=== PATIENT | female | born 1955 | race Caucasian/White ===

== ENCOUNTER 2020-09-13 08:10 | Outpatient (REF) | payer OTHER, SELFPAY ==
[2020-09-13 11:24] LABS: MANUAL DIFF FLAG NO
[2020-09-13 11:38] LABS: Basophils Percent Auto 0.3 % (0-2); Eosinophils Absolute Auto 0.1 X10*3/uL (0.0-0.4); Eosinophils Percent Auto 1.6 % (0-4); Hemoglobin 13.1 g/dl (12.0-16.0); Imm Gran Abs Auto 0.02 X10*3/uL (0.00-0.03); Imm Gran Pct Auto 0.3 % (0.0-0.4); Lymphocytes Absolute Auto 2.3 X10*3/uL (1.2-4.9); Lymphocytes Percent Auto 30.6 % (20-40); Mean Corpuscular HGB Conc 31.2 g/dl (31.0-35.0); Mean Corpuscular Hemoglobin 28.4 pg (27.0-33.0); Mean Corpuscular Volume 91.1 fL (80-98); Mean Platelet Volume 11.2 fL (9.4-12.3); Monocytes Absolute Auto 0.5 X10*3/uL (0.1-1.2); Monocytes Percent Auto 6.9 % (2-11); Neutrophils Absolute Auto 4.6 X10*3/uL (2.0-8.3); Neutrophils Percent Auto 60.3 % (45-73); Platelet Count 231 X10*3/uL (160-400); Red Blood Count 4.61 X10*6/uL (4.20-5.50); White Blood Count 7.7 X10*3/uL (4.8-10.8)
[2020-09-13 11:59] LABS: Alanine Aminotransferase 15 U/L (0-31); Albumin Level 3.8 g/dL (3.5-5.0); Alkaline Phosphatase 118 U/L (39-117); Anion Gap 15 (12-20); Aspartate Amino Transferase 16 U/L (5-31); Bilirubin Total 0.8 mg/dL (0.0-1.0); Blood Urea Nitrogen 19 mg/dL (9-16); Calcium 8.6 mg/dL (8.4-10.2); Carbon Dioxide 29 mmol/L (22-29); Chloride 100 mmol/L (96-108); Cholesterol 170 mg/dL; Estimated Glomerular Filt Rate > 60; Glucose Fasting 116 mg/dL (60-99); HDL Cholesterol 46 mg/dL; LDL Cholesterol Calculated 104 mg/dl; Potassium 3.9 mmol/l (3.3-5.1); Sodium 140 mmol/L (135-145); Total Protein 6.7 g/dL (6.5-8.0); Triglycerides 103 mg/dL
[2020-09-13 12:08] LABS: Thyroid Stimulating Hormone 4.41 uIU/mL (0.32-4.0)
[2020-09-13 12:21] LABS: Creatinine Urine 88.77 mg/dL; Microalbum/Creatinine Ratio Ur 5.6 ug/mg cr
== END 2020-09-13 08:11 | disposition home or self-care (01) ==
LOC: HO.HMGCLDS 08:10
PROVIDERS: PCP Internal Medicine Endocrinology, Diabetes & Metabolism; Visit Provider Internal Medicine Endocrinology, Diabetes & Metabolism
DX: E11.9 Type 2 diabetes mellitus without complications (principal); E78.00 Pure hypercholesterolemia, unspecified
CPT/HCPCS: 36415; 80053; 80061; 82043; 84443; 85025

== ENCOUNTER 2020-10-04 15:15 | Outpatient (REF) | payer OTHER, SELFPAY ==
[2020-10-04 18:20] LABS: COVID-19 Test Negative (Negative)
== END 2020-10-04 15:16 | disposition home or self-care (01) ==
LOC: HO.EMPCOV 15:15
PROVIDERS: PCP Internal Medicine Endocrinology, Diabetes & Metabolism; Visit Provider Internal Medicine
DX: Z20.828 Contact with and (suspected) exposure to other viral communicable diseases (principal)
CPT/HCPCS: 87635; C9803

== ENCOUNTER 2021-06-28 15:19 | Outpatient (REF) | payer OTHER, SELFPAY ==
--- NOTE | ~2021-06-28 | US_ITS ---
EXAMINATION: ULTRASOUND EXTREMITY NONVASCULAR LIMITED CLINICAL INFORMATION: Pain left posterior wrist COMPARISON: None TECHNIQUE: Grayscale and color imaging of the soft tissues of the left dorsal wrist using a linear transducer. Comparison imaging of the right dorsal wrist was also performed. FINDINGS: No solid or cystic mass or fluid collection is seen by ultrasound. US/US extremity nonvascular tejeda IMPRESSION: No abnormality evident by ultrasound.
== END 2021-06-28 15:20 | disposition home or self-care (01) ==
LOC: HO.US 15:19
PROVIDERS: PCP Internal Medicine Endocrinology, Diabetes & Metabolism; Visit Provider Orthopaedic Surgery
DX: M25.532 Pain in left wrist (principal)
CPT/HCPCS: 76882

== ENCOUNTER 2021-08-03 17:08 | Outpatient (REF) | payer OTHER, SELFPAY ==
--- NOTE | ~2021-08-03 | MR_ITS ---
EXAMINATION: MRI WRIST WITHOUT AND WITH CONTRAST, LEFT CLINICAL INFORMATION: Wrist pain. Dorsal ganglion cyst. COMPARISON: None TECHNIQUE: MRI of the wrist without and with contrast is performed in a 1.5 Brandy high-field scanner. 10 cc Gadavist. Patient was recalled for additional imaging, obtained on 08/11/2021 FINDINGS: BONE/JOINTS: No evidence of fracture. Carpal row alignment is maintained. No evidence of significant arthropathy. Small wrist joint fluid. No definite ganglion cyst is identified. MUSCLE/TENDONS: There is prominent intrasubstance T2 bright signal in the extensor digitorum tendon, likely of the second digit. This involves a segment approximately 0.9 cm in length, as the tendon courses along the carpal bones. Findings suggestive of tendinosis and probable component of intrasubstance partial tearing. There is associated peritendinitis and tenosynovitis. Mild peritendinitis/tenosynovitis of the extensor digitorum tendons otherwise. Remainder of the tendons appear unremarkable. LIGAMENTS: Scapholunate, lunotriquetral, TFCC are intact. MEDIAN NERVE: Within normal limits. MR/MR wrist LT wo/w con IMPRESSION: 1. Prominent intrasubstance T2 bright signal in the extensor digitorum tendon, likely of the second digit, as it courses along the carpal bones involving a segment approximately 0.9 cm in length. Findings are suggestive of tendinosis and probable component of intrasubstance partial tearing. Associated tenosynovitis and peritendinitis. 2. Mild peritendinitis/tenosynovitis of the remainder of the extensor digitorum tendons. 3. No focal fluid collections or ganglion cyst is identified.
[2021-08-03 17:48] LABS: Blood Urea Nitrogen 16 mg/dL (9-16); Estimated Glomerular Filt Rate > 60
== END 2021-08-03 17:09 | disposition home or self-care (01) ==
LOC: HO.MRI 17:08
PROVIDERS: Visit Provider Orthopaedic Surgery
DX: M25.532 Pain in left wrist (principal)
CPT/HCPCS: 36415; 73223; 82565; 84520; A9585

== ENCOUNTER 2021-08-11 09:46 | Outpatient (REF) | payer OTHER, SELFPAY | END 2021-08-11 09:47 | disposition home or self-care (01) | LOC: HO.MRI 09:46 | PROVIDERS: Visit Provider Orthopaedic Surgery | DX: Z13.89 Encounter for screening for other disorder (principal) ==

== ENCOUNTER 2021-08-12 15:20 | Outpatient (REF) | payer OTHER, SELFPAY ==
--- NOTE | ~2021-08-12 | MM_ITS ---
EXAMINATION: MM SCREENING DIGITAL BREAST TOMOSYNTHESIS, BILATERAL CLINICAL INFORMATION: Screening. Asymptomatic. The lifetime risk of breast cancer based on the Tyrer-Cuzick Model is 11%. COMPARISON: Mammography: 12/10/2018, 12/30/2016, 09/25/2015 TECHNIQUE: Digital breast tomosynthesis is performed in both the craniocaudal and mediolateral oblique views along with computer-aided detection (CAD). Synthesized 2D images are generated from the tomosynthesis. FINDINGS: There are scattered areas of fibroglandular density (ACR BI-RADS breast composition Category b). There are no significant masses, abnormal calcifications, or other abnormalities. The axilla and skin contours are unremarkable. No significant changes. MM/MM tomosynthesis screening BI IMPRESSION: No mammographic evidence of malignancy. ASSESSMENT: BI-RADS 1: Negative RECOMMENDATION: Routine annual mammography screening. This patient's information was entered into a reminder system with a target due date for their next mammogram.
== END 2021-08-12 15:21 | disposition home or self-care (01) ==
LOC: HO.MAMMO 15:20
PROVIDERS: Visit Provider Internal Medicine Endocrinology, Diabetes & Metabolism
DX: Z12.31 Encounter for screening mammogram for malignant neoplasm of breast (principal)
CPT/HCPCS: 77063; 77067

== ENCOUNTER 2022-08-14 11:04 | Outpatient (REF) | payer MEDICARE, SELFPAY ==
--- NOTE | ~2022-08-14 | MM_ITS ---
EXAMINATION: MM SCREENING DIGITAL BREAST TOMOSYNTHESIS, BILATERAL CLINICAL INFORMATION: Screening. Asymptomatic. The lifetime risk of breast cancer based on the Tyrer-Cuzick Model is 10%. COMPARISON: Mammography: 08/12/2021, 12/10/2018, 12/30/2016 TECHNIQUE: Digital breast tomosynthesis is performed in both the craniocaudal and mediolateral oblique views along with computer-aided detection (CAD). Synthesized 2D images are generated from the tomosynthesis. FINDINGS: There are scattered areas of fibroglandular density (ACR BI-RADS breast composition Category b). There are no significant masses, abnormal calcifications, or other abnormalities. Parenchymal pattern is similar to prior studies. There is no developing density or architectural abnormality. The axilla and skin contours are unremarkable. No significant changes. MM/MM tomosynthesis screening BI IMPRESSION: No mammographic evidence of malignancy. ASSESSMENT: BI-RADS 1: Negative RECOMMENDATION: Routine annual mammography screening. This patient's information was entered into a reminder system with a target due date for their next mammogram.
== END 2022-08-14 11:05 | disposition home or self-care (01) ==
LOC: HO.MAMMO 11:04
PROVIDERS: PCP Internal Medicine Endocrinology, Diabetes & Metabolism; Visit Provider Internal Medicine Endocrinology, Diabetes & Metabolism
DX: Z12.31 Encounter for screening mammogram for malignant neoplasm of breast (principal)
CPT/HCPCS: 77063; 77067

== ENCOUNTER 2023-08-15 13:09 | Outpatient (REF) | payer MEDICARE, SELFPAY | END 2023-08-15 13:10 | disposition home or self-care (01) | LOC: HO.MAMMO 13:09 | PROVIDERS: PCP Internal Medicine Endocrinology, Diabetes & Metabolism; Visit Provider Internal Medicine Endocrinology, Diabetes & Metabolism | DX: Z12.31 Encounter for screening mammogram for malignant neoplasm of breast (principal) | CPT/HCPCS: 77063; 77067 ==

== ENCOUNTER → 2023-08-15 13:15 | Outpatient (BNV) | payer MEDICARE, SELFPAY | PROVIDERS: PCP Internal Medicine Endocrinology, Diabetes & Metabolism; Visit Provider Radiology Diagnostic Radiology | DX: Z12.31 Encounter for screening mammogram for malignant neoplasm of breast (principal) | CPT/HCPCS: 77063; 77067 ==

== ENCOUNTER 2024-08-21 12:52 | Outpatient (REF) | payer MEDICARE, SELFPAY ==
--- NOTE | ~2024-08-21 | MM_ITS ---
EXAMINATION: MM SCREENING DIGITAL BREAST TOMOSYNTHESIS, BILATERAL CLINICAL INFORMATION: Screening. Asymptomatic. COMPARISON: Mammography: Comparison is made with available priors TECHNIQUE: Digital breast mammography with tomosynthesis is performed in both the craniocaudal and mediolateral oblique views along with computer-aided detection (CAD). FINDINGS: There are scattered areas of fibroglandular density (ACR BI-RADS breast composition Category b). There are no significant masses, abnormal calcifications, or other abnormalities. MM/MM tomosynthesis screening BI IMPRESSION: No mammographic evidence of malignancy. ASSESSMENT: BI-RADS BI-RADS 1 - Negative RECOMMENDATION: Routine annual mammography screening. 1 year F/U This examination should not preclude the clinical evaluation of a suspicious palpable abnormality. This patient's information was entered into a reminder system with a target due date for their next mammogram. Electronically signed by: Carlota Lerma DO 08/29/2024 04:08 PM SHAKIR
== END 2024-08-21 12:53 | disposition home or self-care (01) ==
LOC: HO.MAMMO 12:52
PROVIDERS: PCP Physician Assistant; Visit Provider Physician Assistant
DX: Z12.31 Encounter for screening mammogram for malignant neoplasm of breast (principal)
CPT/HCPCS: 77063; 77067

== ENCOUNTER → 2024-08-21 13:00 | Outpatient (BNV) | payer MEDICARE, SELFPAY | PROVIDERS: PCP Physician Assistant; Visit Provider Internal Medicine | DX: Z12.31 Encounter for screening mammogram for malignant neoplasm of breast (principal) | CPT/HCPCS: 77063; 77067 ==

== ENCOUNTER 2025-08-24 10:31 | Outpatient (REF) | payer MEDICARE, SELFPAY ==
--- OUTSIDE RECORDS SUMMARY | 2025-08-24 12:20 | XMS_ITS | Continuity of Care Document ---
Author Organization [facility] Address [address] [place] [address] Phone [phone] Care Team Providers Care Office Administrative Assistant Name Role Phone Magda Olson CNP Care Team Informatio n Website/Blog Editor [phone] Problems Active Problems Provider Date Diabetes mellitus Dorian Marshall M.D. Onset: 0 05/18/2022 Hypercholesterolemia Dorian Marshall M.D. Onset : 05/18/2022 Sleep apnea Dorian Marshall M.D. Onset: 01/2022 Essential hypertension Dorian Marshall M.D. Ons et: 05/18/2022 Social History Type Date Description Comments Sex Female Sex Unknown Lives With Spouse ETOH Use Denies alcohol use Tobacco Use Start: Unknown Patient has never smoked Smoking Status Reviewed: 05/05/25 Patient has never sm oked Allergies and adverse reactions Active Allergies Criticality Reaction Severity Comments Date Percocet Unable to assess criticality 05/18/2022 Medications Active Medications SIG Qnty Indications Order ing Provider Date Vitamin D3 Fast [id number] (1999 Ut) Tablets Dispers Take 1 tablets by mouth a day 90tabs Magda Olson CNP 07/17/2025 Accu-Chek GuideStrips Use as directed for testing blood sugars three times daily 300units E10.9 Mali Frazier M.D. 07/11/2024 Freestyle Lite TestStrip Use A Strip To Test Sugar 1-3 Times Daily. DX E11.9 300units Mali Frazier M.D. 04/08/2024 Lorazepam0.5mg Tablets 1 tab by mouth once a day as needed 30tabs Magda Olson, [facility] 08/07/2022 [id number]/ML Solution Inject 120 units daily via insulin pump DX. E10.9 110ml E10.9 Magda Olson, [facility] 07/28/2022 Atorvastatin Tsgquol55bn Tablets Take 1 Tablet By Mouth Every Day 90ta Magda Olson, [facility] 05/18/2022 Giqykysqfjefexxrbki17 .5mg Capsules Take 1 Capsule By Mouth Every Day [facility] Magda Olson, [facility] 05/18/2022 Hboxezaqbw92wi Tablets Take 1 Tablet By Mouth Every Day 90ta Magda Olson, [facility] 03/23/2022 History Medications Vitamin [id number] Capsules 1 by mouth every day 90[facility] Magda Londono , [facility] 07/07/2025 - 07/17/2025 Nitrofurantoin [id number] Capsules take one capsule by mouth twice daily for 7 days [facility] 06/19/20 25 - 08/07/2025 Vital Signs Date Vital Result Comment 08/07/2025 1:26pm BP Systolic 128 mmHg BP Diastolic 62 mmHg Heart Rate 73 /min Height 65 inches 5'5 Weight 220.25 lb BMI (Body Mass Index) 36.6 kg/m2 Results Test Acquired Date Facility Test Result H/L Range Note Hemoglobin A1c 5 Inhouse Hemoglobin A1c 7.2% Glucose Fingerstick 5 Inhouse Glucose Fingerstick 130 Vitamin D, 25-Hydroxy 5 [facility] Vitamin D, 25-Hydroxy 20.5 ng/mL Low 30.0-100. 0 1 TSH Rfx on Abnormal to Free T4 5 [facility] TSH Rfx on Abnormal to Free T4 4.190 uIU/mL 0.450-4.5 00 Urinalysis Complete W Reflex To Culture 5 [facility] Specific [place] 1.022 1.005-1.0 30 pH 5.5 5.0-7.5 Urine-Color Yellow Yellow Appearance Clear Clear WBC Esterase Trace Abnormal Negative Protein Negative Negative/ Trace Glucose Negative Negative Ketones Negative Negative Occult Blood Negative Negative Bilirubin Negative Negative Urobilinogen,S dorys-Qn 0.2 mg/dL 0.2-1.0 Nitrite, Urine Negative Negative Microscopic Examination See below: 2 Microscopic Examination TNP Urinalysis Reflex See Comment: 3 WBC 0-5 /hpf 0 - 5 RBC None seen /hpf 0 - 2 Epithelial Cells (non renal) 0-10 /hpf 0 - 10 Epithelial Cells (renal) TNP Casts None seen /lpf None seen Cast Type TNP Crystals TNP Crystal Type TNP Mucus Threads TNP Bacteria None seen None seen/Few Yeast TNP Trichomonas TNP Comment TNP Urine Culture, Routine Final report 4 Result 1 Lactobacillus sp <SEE NOTE> 5 Thyroid Peroxidase (Tpo) Ab 5 [facility] Thyroid Peroxidase (Tpo) Ab 287 IU/mL High 0-34 Urine Culture, Routine 5 [facility] Urine Culture, Routine Final report 6, 7 Result 1 Lactobacillus sp <SEE NOTE> 8 TSH reflex to T4 5 [facility] TSH Reflex To T4 10.100 uIU/mL High 0.450-4.5 00 Thyroxine (T4) 6.2 g/dL 4.5-12. 0 Microscopic Examination 5 [facility] Epithelial Cells (non renal) See Comment: 9, 10 Request Problem 5 [facility] Request Problem TNP 11 Urinalysis, Complete 5 [facility] Specific [place] 1.015 1.002-1.0 30 pH 5.5 5.0-8.0 Appearance YELLOW 12 WBC Esterase 2+ Abnormal Negative Protein Negative Negative Glucose TRACE Abnormal Negative Ketones Negative Negative Occult Blood Negative Negative Bilirubin Negative Negative Urobilinogen,S dorys-Qn NORMAL mg/dL Normal Nitrite, Urine Negative Negative Microscopic Examination See Comment: 13 Urinalysis Complete W Reflex To Culture 5 [facility] Specific [place] TNP 14 pH TNP 15 Urine-Color TNP Appearance TNP WBC Esterase TNP Protein TNP 16 Glucose TNP 17 Ketones TNP 18 Occult Blood TNP Bilirubin TNP Urobilinogen,S dorys-Qn TNP Nitrite, Urine TNP Microscopic Examination TNP Microscopic Examination TNP Urinalysis Reflex TNP Albumin/Creatin ine Ratio, Random Urine 5 [facility] Creatinine, Urine 88.3 mg/dL Not Estab. Albumin, Urine 8.2 ug/mL Not Estab. Alb/Creat Ratio 9 mg/gcreat 0-29 19 CBC With Differential/Pl atelet 5 [facility] WBC 6.2 x10E3/uL 3.4-10.8 RBC 4.43 x10E6/uL 3.77-5.28 Hemoglobin 12.6 g/dL 11.1-15.9 Hematocrit 41.4 % 34.0-46.6 MCV 94 fL 79-97 MCH 28.4 pg 26.6-33.0 MCHC 30.4 g/dL Low 31.5-35.7 RDW 13.2 % 11.7-15.4 Platelets 195 x10E3/uL 150-450 Neutrophils 64 % Not Estab. Lymphs 28 % Not Estab. Monocytes 6 % Not Estab. Eos 2 % Not Estab. Basos 0 % Not Estab. Immature Cells TNP Neutrophils (Absolute) 4.0 x10E3/uL 1.4-7.0 Lymphs (Absolute) 1.7 x10E3/uL 0.7-3.1 Monocytes(Abso lute) 0.4 x10E3/uL 0.1-0.9 Eos (Absolute) 0.1 x10E3/uL 0.0- 0.4 Baso (Absolute) 0.0 x10E3/uL 0.0-0.2 Immature Granulocytes 0 % Not Estab. Immature Grans (Abs) 0.0 x10E3/uL 0.0-0.1 NRBC TNP Hematology Comments: TNP Urinalysis, Complete 5 [facility] Specific [place] 1.016 1.005-1.0 30 pH 5.5 5.0-7.5 Urine-Color Yellow Yellow Appearance Clear Clear WBC Esterase 2+ Abnormal Negative Protein Negative Negative/ Trace Glucose Negative Negative Ketones Negative Negative Occult Blood Negative Negative Bilirubin Negative Negative Urobilinogen,S dorys-Qn 0.2 mg/dL 0.2-1.0 Nitrite, Urine Negative Negative Microscopic Examination See below: 20 Microscopic Examination TNP WBC >30 /hpf Abnormal 0 - 5 RBC None seen /hpf 0 - 2 Epithelial Cells (non renal) 0-10 /hpf 0 - 10 Epithelial Cells (renal) TNP Casts None seen /lpf None seen Cast Type TNP Crystals TNP Crystal Type TNP Mucus Threads TNP Bacteria Few None seen/Few Yeast TNP Trichomonas TNP Comment TNP Lipid Panel 5 [facility] Cholesterol, Total 159 mg/dL 100-199 Triglycerides 121 mg/dL 0-149 HDL Cholesterol 42 mg/dL >39 VLDL Cholesterol Yimi 22 mg/dL 5-40 LDL Chol Calc ([facility]) 95 mg/dL 0-99 LDL Calc Comment: TNP Comp. Metabolic Panel (14) 5 [facility] Glucose 207 mg/dL High 70-99 BUN 14 mg/dL 8-27 Creatinine 0.79 mg/dL 0.57-1.00 eGFR 80 mL/min/1.73 >59 BUN/Creatinine Ratio 18 12-28 Sodium 139 mmol/L 134-144 Potassium 4.0 mmol/L 3.5-5.2 Chloride 100 mmol/L 96-106 Carbon Dioxide, Total 25 mmol/L 20-29 Calcium 8.8 mg/dL 8.7-10.3 Protein, Total 6.6 g/dL 6.0-8.5 Albumin 3.8 g/dL Low 3.9-4.9 Globulin, Total 2.8 g/dL 1.5-4.5 Bilirubin, Total 0.6 mg/dL 0.0-1.2 Alkaline Phosphatase 130 IU/L High 44-121 21 Ast (Sgot) 15 IU/L 0-40 Alt (SGPT) 17 IU/L 0-32 Glucose Fingerstick 5 Inhouse Glucose Fingerstick 207 Hemoglobin A1c 5 Inhouse Hemoglobin A1c 7.1 Glucose Fingerstick 5 Inhouse Glucose Fingerstick 152 Hemoglobin A1c 5 Inhouse Hemoglobin A1c 7.0% Glucose Fingerstick 4 Inhouse Glucose Fingerstick 216 Hemoglobin A1c 4 Inhouse Hemoglobin A1c 6.9 Glucose Fingerstick 4 Inhouse Glucose Fingerstick 219 Hemoglobin A1c 4 Inhouse Hemoglobin A1c 8.4% Comp. Metabolic Panel (14) 4 [facility] Sodium 142 mmol/L 134-144 Potassium 4.4 mmol/L 3.5-5.2 Chloride 102 mmol/L 96-106 Glucose 177 mg/dL High 70-99 BUN 16 mg/dL 8-27 Creatinine 0.80 mg/dL 0.57-1.00 eGFR 80 mL/min/1.73 >59 BUN/Creatinine Ratio 20 12-28 Carbon Dioxide, Total 28 mmol/L 20-29 Calcium 9.0 mg/dL 8.7-10.3 Protein, Total 6.8 g/dL 6.0-8.5 Albumin 4.1 g/dL 3.9-4.9 Globulin, Total 2.7 g/dL 1.5-4.5 A/G Ratio 1.5 1.2-2.2 Bilirubin, Total 0.3 mg/dL 0.0-1.2 Alkaline Phosphatase 138 IU/L High 44-121 Ast (Sgot) 16 IU/L 0-40 Alt (SGPT) 17 IU/L 0-32 Lipid Panel 4 [facility] Cholesterol, Total 164 mg/dL 100-199 Triglycerides 184 mg/dL High 0-149 HDL Cholesterol 47 mg/dL >39 VLDL Cholesterol Yimi 31 mg/dL 5-40 LDL Chol Calc ([facility]) 86 mg/dL 0-99 Comment: TNP CBC With Differential/Pl atelet 4 [facility] WBC 8.5 x10E3/uL 3.4-10.8 RBC 4.67 x10E6/uL 3.77-5.28 Hemoglobin 13.6 g/dL 11.1-15.9 Hematocrit 42.4 % 34.0-46.6 MCV 91 fL 79-97 MCH 29.1 pg 26.6-33.0 MCHC 32.1 g/dL 31.5-35.7 RDW 12.7 % 11.7-15.4 Platelets 267 x10E3/uL 150-450 Neutrophils 69 % Not Estab. Lymphs 25 % Not Estab. Monocytes 5 % Not Estab. Eos 1 % Not Estab. Basos 0 % Not Estab. Immature Cells TNP Neutrophils (Absolute) 5.9 x10E3/uL 1.4-7.0 Lymphs (Absolute) 2.1 x10E3/uL 0.7-3.1 Monocytes(Abso lute) 0.4 x10E3/uL 0.1-0.9 Eos (Absolute) 0.1 x10E3/uL 0.0- 0.4 Baso (Absolute) 0.0 x10E3/uL 0.0-0.2 Immature Granulocytes 0 % Not Estab. Immature Grans (Abs) 0.0 x10E3/uL 0.0-0.1 NRBC TNP Hematology Comments: TNP Albumin/Creatin ine Ratio, Random Urine 4 [facility] Creatinine, Urine 165.5 mg/dL Not Estab. Albumin, Urine 4.6 ug/mL Not Estab. Alb/Creat Ratio 3 mg/gcreat 0-29 22 Hemoglobin A1c 4 Inhouse Hemoglobin A1c 7.6% Glucose Fingerstick 4 Inhouse Glucose Fingerstick 207 Hemoglobin A1c 3 Inhouse Hemoglobin A1c 7.5% Glucose Fingerstick 3 Inhouse Glucose Fingerstick 174 Hemoglobin A1c 3 Inhouse Hemoglobin A1c 7.5% Glucose Fingerstick 3 Inhouse Glucose Fingerstick 148 Glucose Fingerstick 3 Inhouse Glucose Fingerstick 282 Hemoglobin A1c 3 [facility] Hemoglobin A1c 7.7 % High (4.0-5.6) 23 Lipid Panel 3 [facility] Cholesterol, Total 166 mg/dL (<200) Triglyceride 104 mg/dL (<150) 2 4 HDL Chol 51 mg/dL (>39) LDL Cholesterol, Calculated 94 mg/dL (0-130) Non HDL Cholesterol (Calc) 115 mg/dL (<160) Comprehensive Metabolic Panl 3 [facility] Glucose 142 mg/dL High (70-99) 25 BUN 13 mg/dL (8-23) Creatinine 0.8 mg/dL (0.5-1.0) Sodium 140 mmol/L (133-145) Potassium 4.1 mmol/L (3.6-5.2) Chloride 100 mmol/L (98-107) Bicarbonate 30 mmol/L High (22-29) Anion Gap 10 (4-17) Albumin 3.9 GM/DL (3.4-4.8) Calcium 9.3 mg/dL (8.6-10.5 ) Bilirubin,Tota l 0.4 mg/dL (0-1.2) Total Protein 6.7 GM/DL (6.2-8.2 ) Ag Ratio 1.4 Ast 21 U/L (0-32) Alk Phos 135 U/L High (35-104) Alt 21 U/L (0-33) Estimated GFR Creatinine 80 ML/MIN/1.73M2 26 Urinary Microalbumin 3 [facility] Micro-Albumin <12.0 mg/L (<20) 27 Malb/Creat Ratio Unable to calcul <SEE NOTE> MG/GM (0-20) 28 Urine Creat For Micro Albumin 71.3 mg/dL Complete Abc With Diff 3 [facility] WBC 6.5 K/MM3 (4.0-11.0 ) RBC 4.57 M/MM3 (4.20-5.4 0) HGB 13.0 GM/DL (11.7-15. 5) HCT 41.9 % (35.7-45. 8) MCV 91.7 FL (80.0-100 .0) MCH 28.4 pg (27.0-34. 0) MCHC 31.0 g/dL Low (33.0-37. 0) PLT 223 K/MM3 (150-460) RDW-SD 43.5 FL (<47.0) MPV 11.1 FL (9.4-12.4 ) Automated NRBC 0.0 #/100WBC'S Abs. NRBC 0.0 K/MM3 Neut # 3.7 K/MM3 (1.3-7.0) Lymph # 2.2 K/MM3 (0.8-3.1) Miner# 0.5 K/MM3 (0.4-0.9) Eo # 0.1 K/MM3 (0.0-0.4) Baso # 0.0 K/MM3 (0.0-0.1) Abs. Imm Gran 0.0 K/MM3 Neut 57.1 % (44-76) Lymph 33.4 % (15-43) Monocyte 7.5 % (4.5-10.5 ) Eo 1.4 % (0-6) Baso 0.3 % (0-2) Imm Gran 0.3 % Hemoglobin A1c 2 [facility] Hemoglobin A1c <pending> Hemoglobin A1c 2 Inhouse Hemoglobin A1c 7.6% Glucose Fingerstick 2 Inhouse Glucose Fingerstick 182 Hemoglobin A1c 2 Inhouse Hemoglobin A1c 7.6% Glucose Fingerstick 2 Inhouse Glucose Fingerstick 146 1 Vitamin D deficiency has been defined by the [place] of Medicine and an Endocrine Society practice guideline as a level of serum 25-OH vitamin D less than 20 ng/mL (1,2). The Endocrine Society went on to further define vitamin D insufficiency as a level between 21 and 29 ng/mL (2). 1. IOM ([place] of Medicine). 2010. Dietary reference intakes for calcium and D. [place]: The National Academies Press. 2. Becca MF, Rigoberto HEWITT, Mara BOOGIE, et al. Evaluation, treatment, and prevention of vitamin D deficiency: an Endocrine Society clinical practice guideline. JCEM. 2010; 96(7):1911-30. 2 Microscopic was manuel cated and was performed. 3 This specimen has re flexed to a Urine Culture. 4 Preliminary report 5 Lactobacillus specie s Greater than 100,000 colony forming units per mL Susceptibility not normally performed on this organism. 6 SRC:UC 7 Source of Specimen: UC 8 Lactobacillus specie s Source of Specimen: UC Greater than 100,000 colony forming units per mL Susceptibility not normally performed on this organism. 9 A courtesy copy of t his report has been sent to the patient, 10 MICROSCOPIC PERFORME D 11 Please refer to the following specimen for additional lab results. TEST: [id number] UA/M w/rflx Culture, Routine [id number] 12 TURBID 13 MICROSCOPIC PERFORME D URINE WBCs 30 /HPF 0-5 H URINE RBCs 6 /HPF 0-3 H BACTERIA HEAVY HPF NEGATIVE A MUCUS SLIGHT /LPF N SQUAMOUS EPITH 2 /HPF 0-8 N CORRECTED ON 06/19 AT 1219: PREVIOUSLY REPORTED 4 14 Please refer to the following specimen for additional lab results. [id number] 15 Test not performed 16 Test not performed 17 Test not performed 18 Test not performed 19 Normal: 0 - 29 Moderately increased: 30 - 300 Severely increased: >300 20 Microscopic was manuel cated and was performed. 21 Effective 2024 Alkaline Phosphatase reference interval will be changing to: Age Male Female 0 - 5 days 47 - 127 47 - 127 6 - 10 days 29 - 242 29 - 242 11 - 20 days 109 - 357 109 - 357 21 - 30 days 94 - 494 94 - 494 1 - 2 months 149 - 539 149 - 539 3 - 6 months 131 - 452 131 - 452 7 - 11 months 117 - 401 117 - 401 12 months - 6 years 158 - 369 158 - 369 7 - 12 years 150 - 409 150 - 409 13 years 156 - 435 78 - 227 14 years 114 - 375 64 - 161 15 years 88 - 279 56 - 134 16 years 74 - 207 51 - 121 17 years 63 - 161 47 - 113 18 - 20 years 51 - 125 42 - 106 21 - 50 years 47 - 123 41 - 116 51 - 80 years 49 - 135 51 - 125 >80 years 48 - 129 48 - 129 22 Normal: 0 - 29 Moderately increased: 30 - 300 Severely increased: >300 23 MONITORING: In known diabetic patients, hemoglobin A1c targets should be discussed with health care provider. DIAGNOSTIC USE: The [place] Diabetes Association (ADA) and the World Health Organization (WHO) recommend the use of HbA1c to diagnose diabetes using a threshold of 6.5%. Patients who have an HbA1c between 5.7% and 6.4% are considered at increased risk for developing diabetes in the future. CAUTION: Falsely low HbA1c results may be observed in patients with hemolytic anemia, homozygous forms of abnormal hemoglobin (e.g. SS, CC, SC), , recent blood loss or hemoglobin F greater than 7%. Fructosamine may be used as an alternate test in these cases. REFERENCE: ADA: Standards of Medical Care in Diabetes 2020, The Journal of Clinical and Applied Research and Education Volume 43, Supplement 1 24 Fasting 25 Fasting 26 Creatinine based est imated glomerular filtration (eGFR) in adults is calculated using the National Kidney Foundation recommended 2020 CKD-EPI equation. Estimates GFR from serum creatinine, age and sex. 27 The urine microalbum in test is designed to monitor renal function. When screening for Bence Floyd proteinuria, urine electrophoresis is recommended. 28 Unable to calculate Procedures Date Code Description Status 08/07/2025 78036 Glucose Monitoring Interpeta tion And Report Completed 05/05/2025 05152 Glucose Monitoring Interpeta tion And Report Completed 02/04/2025 90441 Glucose Monitoring Interpeta tion And Report Completed 05/29/2023 04181 Glucose Monitoring Interpeta tion And Report Completed 02/26/2023 88500 Glucose Monitoring Interpeta tion And Report Completed 08/28/2022 45499 Glucose Monitoring Interpeta tion And Report Completed Medical Devices Description No Information Available Encounters Type Date Location Provider Dx Diagnosis Office Visit 07/20/2025 9:38a Main Office Magda Olson CNP E78.00 Pure hypercholesterolemia, unspecified I10 Essential (primary) hypertension Assessments Date Code Description Provider 08/07/2025 E10.9 Type 1 diabetes mellitus without complications Magda Olson CNP 08/07/2025 E06.3 Autoimmune thyroiditis Nazanin Olson CNP 08/07/2025 I10 Essential hypertension Nazanin Olson CNP 08/07/2025 E78.00 Hypercholesterolemia Magda Olson CNP 08/07/2025 G47.33 Obstructive sleep apnea synd christopher Magda Olson CNP 08/07/2025 E66.9 Obesity, unspecified Magda Olson CNP 08/07/2025 F41.9 Anxiety disorder, unspecifie d Magda Olson, NICKIE 08/07/2025 R74.8 Abnormal levels of other ser um enzymes Magda Olson CNP Plan of Treatment Future Appointment(s):* 02/09/2026 1:00 pm - Magda Olson CNP at Main Office 08/07/2025 - Magda Olson CNP* E10.9 Type 1 diabetes mellitus without complications * E06.3 Autoimmune thyroiditis * I10 Essential hypertension * E78.00 Hypercholesterolemia * G47.33 Obstructive sleep apnea syndrome * E66.9 Obesity, unspecified * F41.9 Anxiety disorder, unspecified * R74.8 Abnormal levels of other serum enzymes Functional Status Description No Information Available Mental Status Description No Information Available Referrals Description No Information Available
== END 2025-08-24 10:32 | disposition home or self-care (01) ==
LOC: HO.MAMMO 10:31
PROVIDERS: Visit Provider Physician Assistant
DX: Z12.31 Encounter for screening mammogram for malignant neoplasm of breast (principal)
CPT/HCPCS: 77063; 77067

== ENCOUNTER → 2025-08-24 10:45 | Outpatient (BNV) | payer MEDICARE, SELFPAY | PROVIDERS: Visit Provider Internal Medicine | DX: Z12.31 Encounter for screening mammogram for malignant neoplasm of breast (principal) | CPT/HCPCS: 77063; 77067 ==